=== PATIENT | female | born 1985 | race Caucasian/White ===

== ENCOUNTER → 2022-07-15 | Outpatient (CLI) | payer OTHER ==
[~2022-07-15] MED LIST: ISOVUE-300 61% 50ML VIAL As Ordered ONE; LIDOCAINE 1% MDV 20ML VIAL As Ordered ONE; PROHANCE 279.3MG/ML 5ML VIAL As Ordered ONE
== END ==
LOC: M RAD 06:04
PROVIDERS: ATTEND Physician Assistant
DX: S93.402D Sprain of unspecified ligament of left ankle, subsequent encounter (principal)
CPT/HCPCS: 27648; 73723; 77002; A9576